=== PATIENT | male | born 1930 | race Caucasian/White ===

== ENCOUNTER → 2016-10-16 | Outpatient (REF) | payer MEDICARE ==
[2016-10-16 18:19] LABS: INR 1.05
== END ==
LOC: M LAB REF 16:58
PROVIDERS: ATTEND Nurse Practitioner Family
DX: I50.32 Chronic diastolic (congestive) heart failure (principal); K62.5 Hemorrhage of anus and rectum

== ENCOUNTER → 2016-12-10 | Emergency (ER) | payer MEDICARE ==
[~2016-12-10] VITALS: Ht 177.8 cm; Wt 88.9 kg
[~2016-12-10] MED LIST: ASPI81TA85 PO; ATOR40TA PO; MULT1TAB18 PO; NORCOTAB PO; RAMI10CA PO; VITA200025 PO
[2016-12-10 17:06] VITALS: BP 149/90
--- NOTE | 2016-12-10 21:10 | REPUSA ---
CT of the head Clinical history: trauma. Protocol: Multiple axial CT images obtained with 5 mm slice thickness were obtained through the head without administration of contrast. Findings: The ventricles and sulci are symmetric but prominent in size bilaterally. There are periven tricular areas of low attenuation throughout the deep white matter. There is no evidence of acute hem orrhage or infarct. There is no midline shift, mass effect, or extra-axial fluid collection. The osse ous structures are unremarkable. The visualized paranasal sinuses and mastoid air cells are clear. Impression: No acute hemorrhage or infarct. 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
--- NOTE | 2016-12-10 21:20 | REPUSA ---
CT of the facial bones without contrast Clinical history: Pain, trauma. Technique: Multiple axial CT images were obtained through the facial bones and paranasal sinuses util izing 3 mm axial slices without administration of contrast. Coronal and sagittal reconstructions were also obtained. Findings: The visualized paranasal sinuses are clear. The osteomeatal complexes are patent bilaterall y. The nasal septum is midline. The visualized mastoid air cells are clear. There is a comminuted non displaced fracture of the nasal bones bilaterally. The other osseous structures do not demonstrate an y acute abnormalities. The superficial soft tissues are within normal limits. Impression: Comminuted nondisplaced bilateral nasal bone fractures. Otherwise unremarkable study.
--- NOTE | 2016-12-11 10:18 | REP ---
BILATERAL HAND SERIES: Four views of each hand presented. HISTORY: Trauma. FINDINGS: There is diffuse osteopenia. Four views of the right hand demonstrate osteoarthritis at the first metacarpophalangeal joint and at the PIP joint of the small finger. There is an exostosis projecting volar and radial from the proximal phalanx of the small finger. Mild osteoarthritic changes are seen at the DIP joints. No right-sided fracture is appreciated. On the left, there is an obliquely oriented fracture through the 3rd metacarpal with some override and mild apex dorsal angulation. Overlying soft tissue swelling is seen. There are advanced osteoarthritic changes at the index DIP and mild osteoarthritic changes are seen at the other finger DIP joints. Mild 1st carpometacarpal articulation osteoarthritis is noted. IMPRESSION: Obliquely oriented overriding and slightly angulated fracture of the 3rd metacarpal left hand. Osteoarthritic changes and diffuse osteoporosis are also noted. Signed by Mo Ellington MD 12/11/2016 04:39 P
== END | disposition home or self-care (01) ==
LOC: M ED 19:25
DX: S02.2XXA Fracture of nasal bones, initial encounter for closed fracture (principal); S62.603A Fracture of unspecified phalanx of left middle finger, initial encounter for closed fracture; S63.614A Unspecified sprain of right ring finger, initial encounter; W19.XXXA Unspecified fall, initial encounter; Y92.410 Unspecified street and highway as the place of occurrence of the external cause; Y93.01 Activity, walking, marching and hiking; Y99.8 Other external cause status; Z79.82 Long term (current) use of aspirin; Z79.899 Other long term (current) drug therapy; I25.2 Old myocardial infarction; Z95.5 Presence of coronary angioplasty implant and graft; I10 Essential (primary) hypertension; H26.9 Unspecified cataract

== ENCOUNTER → 2016-12-15 | Outpatient (REF) | payer MEDICARE ==
[2016-12-18 00:09] LABS: Lyme Disease IgG/IgM Antibodie <0.91 ISR (0.00-0.90); Lyme Disease IgM Ab Quantitati <0.80 index (0.00-0.79)
== END ==
LOC: M LAB REF 16:43
PROVIDERS: ATTEND Nurse Practitioner Family
DX: Z11.59 Encounter for screening for other viral diseases (principal)

== ENCOUNTER → 2019-11-03 | Outpatient (REF) | payer MEDICARE ==
[~2019-11-03] MED LIST changes: -ATOR40TA PO; +ATOR40TA75 PO; +HYDR-3715 PO; -NORCOTAB PO; -RAMI10CA PO; +RAMI1CAP26 PO
[2019-11-03 18:35] LABS: FOLATE 23.9 NG/ML
== END ==
LOC: M LAB REF 17:52
PROVIDERS: ATTEND Internal Medicine
DX: R41.3 Other amnesia (principal)

== ENCOUNTER → 2020-09-18 | Outpatient (REF) | payer MEDICARE ==
[~2020-09-18] MED LIST changes: -ASPI81TA85 PO; +ASPI81TA86 PO
== END ==
LOC: M LAB REF 17:32
PROVIDERS: ATTEND Internal Medicine
DX: Z11.3 Encounter for screening for infections with a predominantly sexual mode of transmission (principal); F03.90 Unspecified dementia, unspecified severity, without behavioral disturbance, psychotic disturbance, mood disturbance, and anxiety

== ENCOUNTER 2020-11-04 09:48 | Emergency (ER) | payer MEDICARE ==
[~2020-11-04] VITALS: Ht 182.9 cm; Wt 93.2 kg
[2020-11-04 10:26] LABS: BASO # 0.1 10^3/uL (0.0-0.2); BASO % 0.7 % (0.0-1.0); EOS # 0.4 10^3/uL (0.0-0.5); EOS % 4.3 % (0.0-3.0); HEMATOCRIT 43.9 % (42.0-52.0); HEMOGLOBIN 14.1 g/dl (13.5-17.5); LYMPH # 3.5 10^3/uL (1.5-5.0); LYMPH % 41.2 % (24.0-44.0); MEAN CORPUSCULAR HGB CONC 32.1 g/dl (32.0-36.5); MEAN CORPUSCULAR VOLUME 93.4 fl (80.0-96.0); MONO # 0.6 10^3/uL (0.0-0.8); MONO % 7.3 % (0.0-5.0); NEUTROPHILS # 3.9 10^3/uL (1.5-8.5); NEUTROPHILS % 46.3 % (36.0-66.0); PLATELET COUNT, AUTOMATED 168 10^3/uL (150-450); WHITE BLOOD COUNT 8.5 10^3/uL (4.0-10.0)
--- NOTE | 2020-11-04 10:29 | REP ---
INDICATION: CHEST PAIN. COMPARISON: Comparison chest x-ray Feb 19 2411. TECHNIQUE: Portable upright AP chest radiograph. FINDINGS: The lungs are somewhat hyperinflated. Interstitial markings are prominent in the bases consistent with COPD pulmonary fibrosis. Pleural angles are sharp. Moderate cardiac enlargement is observed. Median sternotomy wires are seen. Monitoring electrodes are noted. Pulmonary vasculature is not increased.. A prosthetic right shoulder joint is observed. IMPRESSION: Moderate cardiac enlargement. Mild bibasilar interstitial fibrosis consistent with COPD. No acute infiltrate.. <Electronically signed by Ernesto Ellington > 11/04/20 0256
[2020-11-04] MEDS ORDERED: ISOVUE-370 76% 100ML VIAL As Ordered ONE (10:49)
[2020-11-04 11:19] LABS: BLOOD UREA NITROGEN 16 MG/DL (7-18); CALCIUM LEVEL 9.9 MG/DL (8.8-10.2); CARBON DIOXIDE LEVEL 33 MEQ/L (21-32); CHLORIDE LEVEL 105 MEQ/L (98-107); CREATININE FOR GFR 1.06 MG/DL (0.70-1.30); FREE T4 0.95 NG/DL (0.76-1.46); GLOMERULAR FILTRATION RATE > 60.0 (>35); GLUCOSE, FASTING 89 MG/DL (70-100); POTASSIUM SERUM 4.4 MEQ/L (3.5-5.1); SODIUM LEVEL 139 MEQ/L (136-145)
--- NOTE | 2020-11-04 11:58 | REP ---
INDICATION: pleuritic CP. COMPARISON: Comparison is made with today's portable chest x-ray.. TECHNIQUE: Contrast dose: 75 ML of Isovue [address] technique: Helical scanning is acquired and overlapping 1.5 mm and contiguous 3 mm axial images are reformatted. In addition, maximum intensity projection and multiplanar re-formation images are generated in sagittal and coronal imaging projections. FINDINGS: There is good opacification in the pulmonary arterial tree. There is no evidence of vessel cut off or filling defect to suggest pulmonary embolus. Homogeneous opacity is seen in the thoracic aorta. There is no evidence of aneurysm or dissection. Lung window settings demonstrate show no evidence of infiltrate, lung mass, or significant nodule. There is a 4 mm nodular density in the left base laterally with some adjacent fibrosis. Minimal bibasilar linear fibrosis changes. No pleural or pericardial effusion is seen. No hilar or mediastinal mass or adenopathy is observed. Cardiomegaly and vascular calcification is observed. There is a sliding-type hiatal hernia. In the upper abdomen, there are a few punctate calcifications in the pancreas consistent with prior pancreatitis. The visualized upper abdominal structures are otherwise unremarkable. No bony destructive lesion is seen. IMPRESSION: No CT evidence of pulmonary embolus. Cardiomegaly and hiatal hernia. No active cardiopulmonary disease seen. <Electronically signed by Ernesto Ellington > 11/04/20 [id number]
[2020-11-04 17:30] VITALS: BP 163/73
--- NOTE | 2020-11-06 14:20 | ECGEPIP ---
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
--- NOTE | 2020-11-06 14:28 | ECGEPIP ---
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
== END 2020-11-04 18:22 | disposition home or self-care (01) ==
LOC: EDBD 09:48 → M ED 09:48
DX: R07.9 Chest pain, unspecified (principal); I48.91 Unspecified atrial fibrillation; I45.10 Unspecified right bundle-branch block; I44.4 Left anterior fascicular block; I10 Essential (primary) hypertension; E78.5 Hyperlipidemia, unspecified; Z95.5 Presence of coronary angioplasty implant and graft; Z95.1 Presence of aortocoronary bypass graft; I51.7 Cardiomegaly; K44.9 Diaphragmatic hernia without obstruction or gangrene; Z79.82 Long term (current) use of aspirin; Z79.899 Other long term (current) drug therapy
CPT/HCPCS: 36415; 71045; 71275; 80047; 80048; 84439; 84443; 84484; 85025; 93005; 93041; 94760; 99285; Q9967

== ENCOUNTER 2021-05-12 09:28 | Inpatient (IN) | payer MEDICARE ==
[~2021-05-12] VITALS: Ht 182.9 cm; Wt 89.6 kg
[2021-05-12] MEDS ORDERED: ELIQ5TAB PO (09:48)
[2021-05-12 10:11] LABS: BASO # 0.1 10^3/uL (0.0-0.2); BASO % 0.5 % (0.0-1.0); EOS # 0.1 10^3/uL (0.0-0.5); EOS % 1.4 % (0.0-3.0); HEMATOCRIT 43.3 % (42.0-52.0); HEMOGLOBIN 13.9 g/dl (13.5-17.5); LYMPH # 2.6 10^3/uL (1.5-5.0); MEAN CORPUSCULAR HEMOGLOBIN 30.3 pg (27.0-33.0); MEAN CORPUSCULAR HGB CONC 32.1 g/dl (32.0-36.5); MEAN CORPUSCULAR VOLUME 94.5 fl (80.0-96.0); MONO # 0.8 10^3/uL (0.0-0.8); MONO % 7.6 % (2.0-8.0); NEUTROPHILS # 6.5 10^3/uL (1.5-8.5); NEUTROPHILS % 64.2 % (36.0-66.0); PLATELET COUNT, AUTOMATED 143 10^3/uL (150-450); RED BLOOD COUNT 4.58 10^6/uL (4.30-6.10); WHITE BLOOD COUNT 10.2 10^3/uL (4.0-10.0)
[2021-05-12 10:20] LABS: INR 1.13; PROTHROMBIN TIME 14.9 SECONDS (12.7-14.5)
[2021-05-12 10:21] LABS: PARTIAL THROMBOPLASTIN TIME 28.7 SECONDS (25.9-37.0)
--- NOTE | 2021-05-12 10:26 | REP ---
INDICATION: Altered Mental Status-fall on eliquis. COMPARISON: 12/10/2016. TECHNIQUE: CT brain performed in the axial plane. Coronal reconstruction images are performed. FINDINGS: Moderate atrophy is again noted. Chronic periventricular small vessel ischemic changes are also visualized. There is no acute change compared to the prior study. There is no acute intracranial hemorrhage, midline shift or mass effect. There is no extra-axial fluid collection. The calvarium appears intact with no fracture. The visualized paranasal sinuses and mastoid air cells are clear. There are vascular calcifications in the carotid siphons. IMPRESSION: Stable chronic findings as above. No acute intracranial hemorrhage, midline shift or mass effect. No skull fracture. <Electronically signed by Sid Ramos > 05/12/21 1022
--- NOTE | 2021-05-12 10:28 | REP ---
INDICATION: CHEST PAIN. COMPARISON: 11/04/2020. TECHNIQUE: Single portable AP view of the chest was performed. FINDINGS: There is nulf-ly-sgucmiil cardiomegaly. There are chronic stable fibrotic changes in each lung base. There is no definite acute infiltrate. The mediastinal silhouette is unchanged. Multiple sternal wires are present. There is a right shoulder prosthesis. IMPRESSION: No acute pulmonary disease.Stable chronic changes in the lung bases. Wdei-be-xbfosdso cardiomegaly. <Electronically signed by Sid Ramos > 05/12/21 1024
[2021-05-12 10:40] LABS: ACETAMINOPHEN LEVEL < 2.0 UG/ML (10.0-30.0); ALBUMIN 2.9 GM/DL (3.2-5.2); ALT/SGPT 26 U/L (12-78); BILIRUBIN,DIRECT 0.3 MG/DL (0.0-0.2); BILIRUBIN,TOTAL 2.1 MG/DL (0.2-1.0); ETHYL ALCOHOL (ETHANOL) < 0.003 % (0.000-0.010); FREE T4 1.03 NG/DL (0.76-1.46); LIPASE 60 U/L (73-393); NT-PRO BNP 1964 PG/ML (<450); SALICYLATE LEVEL < 1.7 MG/DL (5.0-30.0); THYROID STIMULATING HORMONE 0.527 uIU/ML (0.358-3.740); TOTAL PROTEIN 6.7 GM/DL (6.4-8.2)
[2021-05-12] MEDS ORDERED: FUROSEMIDE 20MG/2ML VIAL (J1940) IV ONE (11:40)
[2021-05-12] MEDS ORDERED: traMADol 50 MG TAB PO PRN (12:55)
[2021-05-12] MEDS ORDERED: ACETAMINOPHEN 500 MG TAB PO ONE (12:55)
[2021-05-12 13:10] LABS: RSV AMPLIFICATION NEGATIVE (NEGATIVE)
--- NOTE | 2021-05-12 13:14 | HPEPDOC ---
General Date of Admission 05/12/21 Date of Service: May 12, 2021 Chief Complaint The patient is a 89-year-old male admitted with a reason for visit of Chest Pain. Source: Patient, RN/MD History of Present Illness 89-year-old male with past medical history of CAD s/p CABG and PCI, hypertension, systolic CHF, A. fib on Eliquis, BPH, cognitive impairment presented to ED for chest pain. Patient complained of chest pain to his caregiver this morning so EMS was called. Patient is a poor historian he did say he fell in the last couple days but could not give a exact timeframe and he thinks he may have hit his back somewhere he could not describe exactly where. He could not describe how he fell. He knows his name however does not know that this is a hospital and does not know the date. As per son he thinks the patient fell on Wednesday night. On Wednesday patient was complaining of discomfort and chest pains while walking around. As per son patient has fallen before and he does not use his walker or his cane. On my interview the patient complained of pain on the left chest at the back, sharp aching in nature, could not quantify the pain but winces when I touch the back of the left lower chest. There is a hand sized bruise on the chest wall. There is no radiation. Patient does not offer any other complaints. Son reports that he does have some swelling of the legs and sometimes is noted to breathe heavy. He is being admitted for chest pain due to mechanical fall and trauma to the chest wall and CHF exacerbation. Home Medications Scheduled (Multi Vitamin) 1 Tab Tab, 1 TAB PO DAILY, (Reported) Apixaban (Eliquis) 5 Mg Tablet, 5 MG PO DAILY, (Reported) Aspirin (Aspir 81) 81 Mg Tab, 81 MG PO DAILY, (Reported) Atorvastatin Calcium (Atorvastatin Calcium) 40 Mg Tab, 40 MG PO DAILY, (Reported) Ramipril (Ramipril) 10 Mg Cap, 10 MG PO DAILY, (Reported) Allergies Coded Allergies: No Known Allergies (Unverified , 07/18/04) Past Medical History Medical History CAD s/p CABG and PCI, hypertension, systolic CHF, A. fib on Eliquis, BPH, history of nonsustained ventricular tachycardia Surgical History Bilateral inguinal hernia surgery, right shoulder replacement Family History Significant Family History: Heart disease Social History * Smoker: former Smoker Alcohol: Denies Drugs: denies A-FIB/CHADSVASC A-FIB History Current/History of A-Fib/PAF?: Yes Current PO Anticoag Therapy: Yes Review of Systems Constitutional: Denies: Chills, Fever, Night Sweats Eyes: Denies: Pain, Vision change ENT: Denies: Head Aches, Ear Pain, Dysphagia Skin: Denies: Rash, Lesions, Breakdown Pulmonary: Reports: Dyspnea Cardiovascular: Reports: Chest Pain, Edema; Denies: Palpitations, Orthopnea, Paroxysmal Noc. Dyspnea, Lt Headedness Gastrointestinal: Denies: Nausea, Vomiting, Abdominal Pain, Diarrhea Genitourinary: Denies: Dysuria, Frequency, Incontinence, Retention Hematologic: Denies: Bruising, Bleeding Excessively Neurological: Denies: Weakness, Numbness, Change in speech, Confusion Physical Examination General Exam: Positive: No Acute Distress Eye Exam: Positive: PERRLA, Conjunctiva & lids normal, EOMI; Negative: Sclera icteric ENT Exam: Positive: Atraumatic, Mucous membr. moist/pink, Pharynx Normal Chest Exam: Positive: Normal air movement, Other (Basal crack) Heart Exam: Positive: Rate Normal, Bradycardic, Irregular Rhythm, Normal S1, Normal S2; Negative: Murmurs, Rubs Abdomen Exam: Positive: Normal bowel sounds, Soft, Hernia (Umbilical hernia as well as ventral hernia); Negative: Tenderness, Hepatospenomegaly Extremity Exam: Positive: Edema; Negative: Clubbing, Cyanosis Skin Exam: Positive: Nl turgor and temperature; Negative: Breakdown, Lesion Vital Signs Vital Signs Date Time Temp Pulse Resp B/P (MAP) Pulse Ox O2 Delivery O2 Flow Rate FiO2 05/12/21 11:15 98.1 05/12/21 10:30 156/65 (95) 05/12/21 10:28 55 20 98 Room Air Laboratory Data Labs 24H Laboratory Tests 2 05/12/21 09:44: Immature Granulocyte % (Auto) 0.3, Neutrophils (%) (Auto) 64.2, Lymphocytes (%) (Auto) 26.0, Monocytes (%) (Auto) 7.6, Eosinophils (%) (Auto) 1.4, Basophils (%) (Auto) 0.5, Neutrophils # (Auto) 6.5, Lymphocytes # (Auto) 2.6, Monocytes # (Auto) 0.8, Eosinophils # (Auto) 0.1, Basophils # (Auto) 0.1, Nucleated Red Blood Cells % (auto) 0.0, Prothrombin Time 14.9H, Prothromb Time International Ratio 1.13, Activated Partial Thromboplast Time 28.7, Urine Color YELLOW, Urine Appearance HAZY, Urine pH 7.0, Urine Specific [place] 1.016, Urine Protein NEGATIVE, Urine Glucose (UA) NEGATIVE, Urine Ketones NEGATIVE, Urine Blood NEGATIVE, Urine Nitrite NEGATIVE, Urine Bilirubin NEGATIVE, Urine Urobilinogen 0.2, Urine Leukocyte Esterase NEGATIVE, Urine WBC (Auto) 0, Urine RBC (Auto) 5H, Urine Hyaline Casts (Auto) 0, Urine Bacteria (Auto) NEGATIVE, Urine Squamous Ep ithelial Cells 0, Urine Sperm (Auto) , Lactic Acid Level 1.4, Total Bilirubin 2.1H, Direct Bilirubin 0.3H, Aspartate Amino Transf (AST/SGOT) 24, Alanine Aminotransferase (ALT/SGPT) 26, Alkaline Phosphatase 45, Ammonia < 10, FJ-Gpv-L-Type Natriuretic Peptide 1964H, Total Protein 6.7, Albumin 2.9L, Al bumin/Globulin Ratio 0.8, Lipase 60L, Thyroid Stimulating Hormone (TSH) 0.527, Free Thyroxine 1.03, Salicylates Level < 1.7L, Acetaminophen Level < 2.0L, Ethyl Alcohol Level < 0.003 05/12/21 10:01: POC Glucose (Misc Panel) 92, POC Sodium (Misc Panel) 141, POC Potassium (Misc Panel) 4.5, POC Chloride (Misc Panel) 104, POC Total CO2 (Misc Panel) 25.0, POC Blood Urea Nitrogen (Misc Panel 17, POC Ionized Calcium (Misc Panel) 4.7, POC Creatinine (Misc Panel) 0.9, POC Hematocrit (Misc Panel) 42.0 05/12/21 10:12: POC Troponin I (Misc) 0.03 CBC/BMP Laboratory Tests 05/12/21 09:44 Assessment/Plan 89-year-old male with past medical history of CAD s/p CABG and PCI, hypertension, systolic CHF, A. fib on Eliquis, BPH, cognitive impairment presented to ED for chest pain. Patient complained of chest pain to his caregiver this morning so EMS was called. Patient is a poor historian he did say he fell in the last couple days but could not give a exact timeframe and he thinks he may have hit his back somewhere he could not describe exactly where. He could not describe how he fell. He knows his name however does not know that this is a hospital and does not know the date. As per son he thinks the patient fell on Wednesday night. On Wednesday patient was complaining of discomfort and chest pains while walking around. As per son patient has fallen before and he does not use his walker or his cane. On my interview the patient complained of pain on the left chest at the back, sharp aching in nature, could not quantify t he pain but winces when I touch the back of the left lower chest. There is a hand sized bruise on the chest wall. There is no radiation. Patient does not offer any other complaints. Son reports that he does have some swelling of the legs and sometimes is noted to breathe heavy. He is being admitted for chest pain due to mechanical fall and trauma to the chest wall and CHF exacerbation. Left back chest wall trauma After an unwitnessed fall at home We will get a rib x-ray Tylenol and tramadol for pain PT Cardiac enzymes are negative Systolic CHF exacerbation Last EF was 47% in our system several years ago Will give Lasix twice daily Will hold ramipril for low blood pressure for diuresis. Chronic A. fib Patient is at rate controlled A. fib We will continue with Eliquis CAD status post CABG Continue with statin, aspirin, Plan / VTE VTE Prophylaxis Ordered?: Yes JEFF DE LA VEGA MD May 12, 2021 11:59
[2021-05-12] MEDS ORDERED: VITMTA PO (13:30)
[2021-05-12] MEDS ORDERED: ASPI81TA26 PO (13:30)
--- NOTE | 2021-05-12 13:34 | REP ---
INDICATION: Fall and injury to back of left chest with bruising. COMPARISON: AP chest, 11/04/2020 and 05/12/2021 TECHNIQUE: Four views of the left-sided ribs were obtained. FINDINGS: There is a fracture of the left 10th rib which may be pathologic. There is cardiomegaly. Status post CABG surgery. The left lung is clear. IMPRESSION: 1. Fracture of the left 10th rib which may be pathologic. 2. Other findings as noted. <Electronically signed by Hayden Crouch > 05/12/21 [id number]
[2021-05-12] MEDS ORDERED: HOME MED LIST COMPLETE! XX SCH (13:45)
[2021-05-12 16:32] VITALS: BP 146/76
[2021-05-12] MEDS ORDERED: FUROSEMIDE 20MG/2ML VIAL (J1940) IV SCH (17:00)
[2021-05-12] MEDS: ATORVASTATIN 20 MG TAB PO SCH (17:23)
[2021-05-12] MEDS: MULTIVITAMINS/MINERALS THERAP 1 TAB PO SCH (17:23)
[2021-05-12] MEDS: FUROSEMIDE 20MG/2ML VIAL (J1940) IV SCH (17:24)
--- NOTE | 2021-05-12 19:55 | ECGEPIP ---
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
--- NOTE | 2021-05-12 19:58 | ECGEPIP ---
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
[2021-05-12] MEDS: APIXABAN 5 MG TAB (ELIQUIS) PO SCH (20:29)
[2021-05-12] MEDS: ACETAMINOPHEN 500 MG TAB PO SCH (20:30)
[2021-05-12] MEDS ORDERED: ASPIRIN 81MG ENTERIC TABLET PO SCH (21:00)
[2021-05-12 22:00] VITALS: BP 113/69
[2021-05-13] MEDS ORDERED: HALOPERIDOL 5MG/ML VIAL (J1630 PER 1) IM PRN ×2 (04:10→12:50)
[2021-05-13] MEDS ORDERED: OLANZapine INTRAMUSCULAR 10MG VIAL IM ONE (04:30)
--- NOTE | 2021-05-13 04:31 | IPNPDOC ---
Text Note Date of Service The patient was seen on 05/13/21. NOTE Woke up very agitated and combative around 4am. Not redirectable. Almost punch ing staff. Risk of harm to self and others. Give 1 time dose of IM zyprexa. Calmed down, agreed to try to sleep and looking forward to breakfast in the morning. VS,Fishbone, I+O VS, Fishbone, I+O Laboratory Tests 05/12/21 09:44 Vital Signs Date Time Temp Pulse Resp B/P (MAP) Pulse Ox O2 Delivery O2 Flow Rate FiO2 05/12/21 22:00 97.1 69 24 113/69 (84) 93 Room Air I&O- Last 24 Hours up to 6 AM 05/13/21 05:59 Intake Total 510 ml Output Total 500 ml Balance 10 ml CEASAR BELL MD May 13, 2021 04:31
[2021-05-13 06:00] VITALS: BP 127/66
[2021-05-13 06:09] LABS: BASO % 0.5 % (0.0-1.0); EOS # 0.1 10^3/uL (0.0-0.5); EOS % 1.5 % (0.0-3.0); HEMATOCRIT 39.7 % (42.0-52.0); HEMOGLOBIN 13.1 g/dl (13.5-17.5); LYMPH # 1.5 10^3/uL (1.5-5.0); MEAN CORPUSCULAR HEMOGLOBIN 30.4 pg (27.0-33.0); MEAN CORPUSCULAR VOLUME 92.1 fl (80.0-96.0); MONO # 0.8 10^3/uL (0.0-0.8); MONO % 9.1 % (2.0-8.0); NEUTROPHILS # 6.2 10^3/uL (1.5-8.5); NEUTROPHILS % 71.6 % (36.0-66.0); PLATELET COUNT, AUTOMATED 157 10^3/uL (150-450); RED BLOOD COUNT 4.31 10^6/uL (4.30-6.10); WHITE BLOOD COUNT 8.7 10^3/uL (4.0-10.0)
[2021-05-13 06:31] LABS: BLOOD UREA NITROGEN 17 MG/DL (7-18); CARBON DIOXIDE LEVEL 32 MEQ/L (21-32); CHLORIDE LEVEL 104 MEQ/L (98-107); CREATININE FOR GFR 1.14 MG/DL (0.70-1.30); GLOMERULAR FILTRATION RATE > 60.0 (>35); GLUCOSE, FASTING 107 MG/DL (70-100); POTASSIUM SERUM 3.6 MEQ/L (3.5-5.1); SODIUM LEVEL 140 MEQ/L (136-145)
[2021-05-13 09:00] LABS: NT-PRO BNP 3588 PG/ML (<450)
[2021-05-13] MEDS: ATORVASTATIN 20 MG TAB PO SCH (09:26)
[2021-05-13] MEDS: APIXABAN 5 MG TAB (ELIQUIS) PO SCH (09:26)
[2021-05-13] MEDS: FUROSEMIDE 20MG/2ML VIAL (J1940) IV SCH (09:26)
[2021-05-13] MEDS: MULTIVITAMINS/MINERALS THERAP 1 TAB PO SCH (09:26)
[2021-05-13] MEDS: ACETAMINOPHEN 500 MG TAB PO SCH (09:26)
--- NOTE | 2021-05-13 11:13 | IPNPDOC ---
Text Note Date of Service The patient was seen on 05/13/21. NOTE Subjective: Patient seen and examined at bedside. This morning he was reported to be agitated, medicated with Zyprexa. He has no recollection of these events from the morning. No new medical complaints this morning. Objective: General: NAD, lying comfortably in bed eating breakfast, elderly, frail HEENT: NC/AT, EOMI Lungs: CTA B/L Heart: +S1S2, irregular Abd: soft, NT, +BS, umbilical and ventral hernia Ext: no edema Neuro: no gross focal deficits Psych: AAOx3 89-year-old male with PMHx including CAD s/p CABG and PCI, HTN, HFrEF, A. fib on Eliquis, BPH, cognitive impairment presented to ED for chest pain. Patient is a poor historian he did say he fell in the last couple days but could not give a exact timeframe and he thinks he may have hit his back somewhere he could not describe exactly where. He could not describe how he fell. Patient admitted for chest pain due to mechanical fall and trauma to the chest wall and CHF exacerbation. #falls - unwitnessed - telemetry monitoring - check echo - fall precautions, PT #left 10th rib fx -tylenol and tramadol for pain - s/p fall - PT as above #HFrEF - check echo Will hold ramipril for low blood pressure for diuresis. #Chronic A. fib - rate controlled - anticoagulation with Eliquis #CAD status post CABG Continue with statin, aspirin, Disposition: extensive discussion regarding code status at bedside. He is opting for DNR/DNI but wishes to speak with his . Pending clinical course, echocardiogram. VS,Fishbone, I+O VS, Fishbone, I+O Laboratory Tests 05/13/21 05:50 Vital Signs Date Time Temp Pulse Resp B/P (MAP) Pulse Ox O2 Delivery O2 Flow Rate FiO2 05/13/21 06:00 98.0 84 20 127/66 (86) 98 Room Air I&O- Last 24 Hours up to 6 AM 05/13/21 06:00 Intake Total 870 ml Output Total 1050 ml Balance -180 ml KAUSHAL BRANNON MD May 13, 2021 11:13
[2021-05-13] MEDS ORDERED: HALOPERIDOL 5MG/ML VIAL (J1630 PER 1) IV PRN (13:55)
[2021-05-13 14:00] VITALS: BP 136/78
--- NOTE | 2021-05-13 14:26 | DS.PDOC ---
Discharge Summary General Date of Admission May 13, 2021 at 11:00 Date of Discharge 05/13/21 Discharge Summary PROCEDURES PERFORMED DURING STAY: [None]. DISCHARGE DIAGNOSES: #falls #left 10th rib fx #HFrEF #Chronic A. fib #CAD status post CABG COMPLICATIONS/CHIEF COMPLAINT: Chf,Rib Injury. HISTORY OF PRESENT ILLNESS/Hospital Course 89-year-old male with PMHx including CAD s/p CABG and PCI, HTN, HFrEF, A. fib on Eliquis, BPH, cognitive impairment presented to ED for chest pain. Patient is a poor historian he did say he fell in the last couple days but could not give a exact timeframe and he thinks he may have hit his back somewhere he could not describe exactly where. He could not describe how he fell. Patient admitted for chest pain due to mechanical fall and trauma to the chest wall and CHF e xacerbation. Patient was seen by PT , with recommendations for home with services. Family is agreeable for patient returning home. Further studies were attempted with regards to his falls, including echocardiogram, however, patient was very resistant family was not interested in any further investigations. As such, patient is being discharged home with outpatient follow-up. DISCHARGE MEDICATIONS: Please see below. ALLERGIES: Please see below. PHYSICAL EXAMINATION ON DISCHARGE: General: NAD, lying comfortably in bed eating breakfast, elderly, frail HEENT: NC/AT, EOMI Lungs: CTA B/L Heart: +S1S2, irregular Abd: soft, NT, +BS, umbilical and ventral hernia Ext: no edema Neuro: no gross focal deficits Psych: AAOx3 LABORATORY DATA: Please see below. ACTIVITY: [As tolerated]. DISPOSITION: Home with services DISCHARGE INSTRUCTIONS: 1. PCP in 3-5 days DISCHARGE CONDITION: [Stable]. TIME SPENT ON DISCHARGE:35 minutes. Vital Signs/I&Os Vital Signs Date Time Temp Pulse Resp B/P (MAP) Pulse Ox O2 Delivery O2 Flow Rate FiO2 05/13/21 14:00 97.6 69 18 136/78 (97) 97 Room Air I&O- Last 24 Hours up to 6 AM 05/13/21 06:00 Intake Total 870 ml Output Total 1050 ml Balance -180 ml Laboratory Data Labs 24H Laboratory Tests 2 05/13/21 05:50: Immature Granulocyte % (Auto) 0.3, Neutrophils (%) (Auto) 71.6H, Lymphocytes (%) (Auto) 17.0L, Monocytes (%) (Auto) 9.1H, Eosinophils (%) (Auto) 1.5, Basophils (%) (Auto) 0.5, Neutrophils # (Auto) 6.2, Lymphocytes # (Auto) 1.5, Monocytes # (Auto) 0.8, Eosinophils # (Auto) 0.1, Basophils # (Auto) 0.0, Nucleated Red Blood Cells % (auto) 0.0, Anion Gap 4L, Glomerular Filtration Rate > 60.0, Calcium Level 9.0, SZ-Fnl-C-Type Natriuretic Peptide 3588H CBC/BMP Laboratory Tests 05/13/21 05:50 Discharge Medications Scheduled Apixaban (Eliquis) 5 Mg Tablet, 5 MG PO BID, (Reported) Aspirin (Aspirin EC) 81 Mg Tablet.dr, 81 MG PO QHS, (Reported) Atorvastatin Calcium (Atorvastatin Calcium) 40 Mg Tab, 40 MG PO DAILY, (Reported) Multivitamins (Thera M Plus Tablet) 1 Each Tablet, 1 TAB PO DAILY, (Reported) Ramipril (Ramipril) 10 Mg Cap, 10 MG PO QHS, (Reported) Allergies Coded Allergies: No Known Allergies (Unverified , 07/18/04) KAUSHAL BRANNON MD May 13, 2021 14:26
[2021-05-13] MEDS ORDERED: ACET-683 PO (14:28)
== END 2021-05-13 16:10 | disposition home or self-care (01) | DRG 205 ==
LOC: EDBD 09:28 → M ED 09:28 → M ED INP 12:52 → ENRESERV 13:45 → M MSPAV 15:49 → OBSVTOIN 05-13 11:00
PROVIDERS: ADMIT Internal Medicine Nephrology; ATTEND Internal Medicine Nephrology
DX: S22.32XA Fracture of one rib, left side, initial encounter for closed fracture (principal); I50.23 Acute on chronic systolic (congestive) heart failure; I25.10 Atherosclerotic heart disease of native coronary artery without angina pectoris; Z95.5 Presence of coronary angioplasty implant and graft; I11.0 Hypertensive heart disease with heart failure; I48.91 Unspecified atrial fibrillation; Z79.01 Long term (current) use of anticoagulants; N40.0 Benign prostatic hyperplasia without lower urinary tract symptoms; G31.84 Mild cognitive impairment of uncertain or unknown etiology; W01.0XXA Fall on same level from slipping, tripping and stumbling without subsequent striking against object, initial encounter; Y92.009 Unspecified place in unspecified non-institutional (private) residence as the place of occurrence of the external cause; Z87.891 Personal history of nicotine dependence; Z79.82 Long term (current) use of aspirin; Z79.899 Other long term (current) drug therapy; Z20.822 Contact with and (suspected) exposure to COVID-19; R29.6 Repeated falls